=== PATIENT | female | born 1980 | race Caucasian/White ===

== ENCOUNTER → 2018-03-27 | Outpatient (CLI) | payer OTHER ==
[2018-03-27 14:42] LABS: ADD MAN DIFF? NO
[2018-03-27 14:46] LABS: BASO # 0.1 x10^3/uL (0.0-0.2); BASO % 1 % (0-3); EOS # 0.1 x10^3/uL (0.0-0.7); EOS % 1 % (0-3); LYMPH % 18 % (24-48); MEAN CORPUSCULAR HEMOGLOBIN 25 pg (25-35); MEAN CORPUSCULAR HGB CONC 32 g/dL (31-37); MEAN CORPUSCULAR VOLUME 77 fL (79-100); MONO # 0.5 x10^3/uL (0.0-1.1); MONO % 5 % (0-9); NEUT # 8.3 x10^3uL (1.8-7.7); NEUT % 75 % (31-73); PLATELET COUNT 513 x10^3/uL (140-400); RED BLOOD COUNT 4.05 x10^6/uL (3.50-5.40); RED CELL DISTRIBUTION WIDTH 17.9 % (11.5-14.5); WHITE BLOOD COUNT 11.1 x10^3/uL (4.0-11.0)
[2018-03-27 14:56] LABS: ALBUMIN 3.7 g/dL (3.4-5.0); ANION GAP 10 (6-14); BLOOD UREA NITROGEN 15 mg/dL (7-20); CALCIUM 8.8 mg/dL (8.5-10.1); CARBON DIOXIDE 21 mmol/L (21-32); CHLORIDE 105 mmol/L (98-107); CREATININE 0.8 mg/dL (0.6-1.0); GFR 79.9; GLUCOSE 120 mg/dL (70-99); POTASSIUM 3.8 mmol/L (3.5-5.1); SODIUM 136 mmol/L (136-145)
== END | disposition home or self-care (01) ==
LOC: SURGPAT 13:34
DX: J16.8 Pneumonia due to other specified infectious organisms (principal)
CPT/HCPCS: 36415; 80048; 82040; 85025

== ENCOUNTER 2018-04-02 06:36 | Observation (INO) | payer OTHER ==
[2018-04-02] MEDS ORDERED: fentaNYL PF VIAL 100 MCG/2 ML VIAL IV (07:00)
[2018-04-02] MEDS ORDERED: LIDOCAINE 1% PF 2 ML VIAL. ID (07:00)
[2018-04-02] MEDS ORDERED: MORPHINE SULFATE 4 MG/ML DISP.SYRIN. IV ×2 (07:00→13:15)
[2018-04-02] MEDS: IV RINGERS,LACTATED 1000ML 1,000 ML IV (07:22)
[2018-04-02] MEDS ORDERED: MIDAZOLAM HCL/PF 2 MG/2 ML VIAL. (07:34)
[2018-04-02] MEDS ORDERED: fentaNYL PF VIAL 100 MCG/2 ML VIAL ×4 (07:34→09:47)
[2018-04-02 07:35] LABS: NEG OBC UR NEG; POS OBC UR POS; U PREG PATIENT NEGATIVE (NEG)
[2018-04-02] MEDS ORDERED: SUCCINYLCHOLINE 200 MG/10 ML VIAL. (07:35)
[2018-04-02] MEDS ORDERED: PROPOFOL 20 ML IV (07:35)
[2018-04-02] MEDS ORDERED: DEXAMETHASONE SOD PHOS 20 MG/5 ML VIAL. (07:35)
[2018-04-02] MEDS ORDERED: LIDOCAINE 1% PF 5 ML VIAL. (07:35)
[2018-04-02] MEDS ORDERED: ONDANSETRON PF 4 MG/2 ML VIAL. ×2 (07:35→09:35)
[2018-04-02] MEDS ORDERED: ROCURONIUM 50 MG/5 ML VIAL. (08:02)
[2018-04-02] MEDS: BUPIVACAINE 0.5% 50 ML VIAL. (08:18)
[2018-04-02] MEDS ORDERED: GLYCOPYRROLATE 1 MG/5 ML VIAL. (08:47)
[2018-04-02] MEDS ORDERED: NEOSTIGMINE METHYLSULFATE 5 MG/5 ML SYRINGE. (08:47)
[2018-04-02] MEDS ORDERED: PROCHLORPERAZINE 10 MG/2 ML VIAL. (09:06)
[2018-04-02] MEDS ORDERED: SEVOFLURANE 61 TO 120 MINUTES. IH (09:10)
[2018-04-02] MEDS ORDERED: KETOROLAC 30 MG/ML INJ. (09:13)
[2018-04-02] MEDS: fentaNYL PF VIAL 100 MCG/2 ML VIAL IV ×4 (09:17→10:01)
[2018-04-02] MEDS: PROCHLORPERAZINE 10 MG/2 ML VIAL. IV (09:17)
[2018-04-02] MEDS ORDERED: MORPHINE SULFATE 4 MG/ML DISP.SYRIN. (09:25)
[2018-04-02] MEDS: MORPHINE SULFATE 4 MG/ML DISP.SYRIN. IV (09:41)
[2018-04-02] MEDS: ONDANSETRON PF 4 MG/2 ML VIAL. IV (09:42)
[2018-04-02] MEDS: oxyCODONE/APAP 7.5/325 1 TAB TABLET PO ×2 (10:11→12:34)
[2018-04-02] MEDS ORDERED: SCOPOLAMINE 1.5MG PATCH. TD (10:34)
[2018-04-02] MEDS: SCOPOLAMINE 1.5MG PATCH. TD (10:39)
[2018-04-02] MEDS ORDERED: HALOPERIDOL LACTATE 5 MG/ML VIAL. (10:44)
[2018-04-02] MEDS: HALOPERIDOL LACTATE 5 MG/ML VIAL. IVP (10:53)
[2018-04-02] MEDS: HALOPERIDOL LACTATE 5 MG/ML VIAL. IM (10:57)
[2018-04-02] MEDS: HALOPERIDOL LACTATE 5 MG/ML VIAL. IV (10:58)
[2018-04-02] MEDS ORDERED: ONDANSETRON ODT 4 MG TAB.RAPDIS. PO (12:30)
[2018-04-02] MEDS ORDERED: hydrALAZINE 20 MG/ML VIAL. IVP (13:00)
[2018-04-02] MEDS ORDERED: POTASSIUM CL 20MEQ-0.45% NACL 1,000 ML IV (13:04)
[2018-04-02] MEDS ORDERED: METOCLOPRAMIDE HCL 10 MG/2 ML VIAL. IV (13:15)
[2018-04-02] MEDS ORDERED: MORPHINE SULFATE/PF 30 ML IV (13:15)
[2018-04-02] MEDS ORDERED: 0.9 % SODIUM CHLORIDE 10 ML DISP.SYRIN. IV (13:15)
[2018-04-02] MEDS ORDERED: diphenhydrAMINE 50 MG/ML VIAL IV (13:15)
[2018-04-02] MEDS ORDERED: diphenhydrAMINE HCL 25 MG CAPSULE PO (13:15)
[2018-04-02] MEDS ORDERED: ONDANSETRON PF 4 MG/2 ML VIAL. IV (13:15)
== END 2018-04-02 14:15 | disposition home or self-care (01) ==
LOC: SURG 06:36 → 4 NORTH 11:10
DX: K43.0 Incisional hernia with obstruction, without gangrene (principal); I10 Essential (primary) hypertension; E66.9 Obesity, unspecified; Z68.43 Body mass index [BMI] 50.0-59.9, adult; Z79.899 Other long term (current) drug therapy; Z88.2 Allergy status to sulfonamides
CPT/HCPCS: 49561; 81025; 88302; 88307; A7015; C1781; G0378; G0379; J0330; J0780; J1100; J1630; J1885; J2250; J2270; J2405; J2704; J2710; J3010; J3490